=== PATIENT | female | born 1935 | race Hispanic/Latino ===

== ENCOUNTER 2021-08-02 13:10 | Inpatient (IN) | payer MEDICARE, OTHER ==
[~2021-08-02] VITALS: Ht 157.5 cm; Wt 62.1 kg
[2021-08-02 14:09] LABS: APPEARANCE,URINE CLEAR (CLEAR); BILIRUBIN,URINE NEGATIVE (NEGATIVE); COLOR,URINE YELLOW (YELLOW); GLUCOSE, URINE (UA) NEGATIVE (NEGATIVE); KETONES,URINE NEGATIVE (NEGATIVE); LEUKOCYTE ESTERASE ,URINE SMALL (NEGATIVE); NITRATE,URINE NEGATIVE (NEGATIVE); OCCULT BLOOD,URINE NEGATIVE (NEGATIVE); PROTEIN,URINE NEGATIVE (NEGATIVE); UROBILINOGEN,URINE 0.2 mg/dL (0.2-1.0)
[2021-08-02 14:21] LABS: BASOPHILS % (AUTO) 0.7 % (0.0-5.0); EOSINOPHILS % (AUTO) 0.4 % (0.0-8.0); HEMATOCRIT 37.4 % (36-48); LYMPHOCYTES % (AUTO) 20.8 % (21.0-51.0); MEAN CORPUSCULAR HEMOGLOBIN 27.9 pg (27.0-33.0); MEAN CORPUSCULAR HGB CONC 32.4 g/dL (32.0-36.0); MEAN CORPUSCULAR VOLUME 86.2 fL (79-99); MONOCYTES % (AUTO) 8.6 % (3.0-13.0); NEUTROPHILS % (AUTO) 69.3 % (40.0-77.0); PLATELET COUNT (AUTO) 80 K/uL (130-400); RED BLOOD CELL COUNT(AUTO) 4.34 MIL/uL (4.00-5.50); RED CELL DISTRIBUTION WIDTH 15.9 % (11.0-15.5); WHITE BLOOD COUNT (AUTO) 5.7 K/uL (4.8-10.8)
[2021-08-02 14:26] LABS: BACTERIA,URINE Few /HPF (None Seen); RBC,URINE 0-1 /HPF (0-1); SQUAMOUS EPITHELIAL CELL,UR Few /HPF (0-2)
[2021-08-02 14:27] LABS: HYALINE CASTS, URINE 0-1 /LPF (0-1 /LPF)
[2021-08-02 14:41] LABS: ALBUMIN 3.7 g/dL (3.5-5.0); BILIRUBIN,TOTAL 0.9 mg/dL (0.2-1.0); CREATININE 1.4 mg/dL (0.5-1.5); MAGNESIUM 1.5 mg/dL (1.80-2.40); PHOSPHORUS 2.8 mg/dL (2.5-4.9); TOTAL PROTEIN, SERUM 7.2 g/dL (6.0-8.3)
[2021-08-02 14:45] LABS: POTASSIUM 2.8 mmol/L (3.5-5.1)
[2021-08-02] MEDS ORDERED: 0.9%NACL 1000ML 1,000 ML IV ONE (15:00)
[2021-08-02] MEDS ORDERED: POTASSIUM CHLORIDE 10% ELIXIR 20 MEQ/15 ML UDCUP PO ONE (15:00)
[2021-08-02] MEDS ORDERED: POTASSIUM CHLORIDE 10MEQ/100ML 10 MEQ/100 ML ML IV SCH (15:30)
[2021-08-02] MEDS: MAGNESIUM 2GM PREMIX 50ML 50 ML IV SCH (15:48)
[2021-08-02] MEDS ORDERED: ACETAMINOPHEN 325 MG TAB PO PRN (16:00)
[2021-08-02] MEDS ORDERED: DOCUSATE SODIUM 100 MG CAP PO PRN (16:00)
[2021-08-02] MEDS ORDERED: ACETAMINOPHEN 650 MG SUPPOSITORY RC PRN (16:00)
[2021-08-02] MEDS ORDERED: LISI5TAB21 PO (18:47)
[2021-08-02] MEDS ORDERED: CICL34.62 TP (18:47)
[2021-08-02] MEDS ORDERED: DICL100G31 TP (18:47)
[2021-08-02] MEDS ORDERED: FAMO10TA39 PO (18:47)
[2021-08-02] MEDS ORDERED: LORA10TA7 PO (18:47)
[2021-08-02] MEDS ORDERED: LEVO100C4 PO (18:47)
[2021-08-02 19:17] VITALS: BP 136/70
[2021-08-02 20:00] VITALS: BP 153/61
[2021-08-02] MEDS ORDERED: PAMIDRONATE DISODIUM 90MG VIAL 90 MG in 0.9%NACL 1000ML 1,000 ML IV SCH (22:30)
[2021-08-03] VITALS (14 sets, daily range): BP systolic 109–169; BP diastolic 40–80
[2021-08-03] MEDS ORDERED: GUAIFENESIN-DM 200/20 MG 10 ML PO PRN (02:00)
[2021-08-03] MEDS ORDERED: NON-FORMULARY MEDICATION 1 EACH (Diclofenac Sodium 100 GM) TP PRN (02:00)
[2021-08-03] MEDS ORDERED: ZOLPIDEM TARTRATE 5 MG TAB PO PRN (02:00)
[2021-08-03] MEDS ORDERED: LACTULOSE 20 GM/30 ML UDCUP PO PRN (02:00)
[2021-08-03] MEDS ORDERED: NITROGLYCERIN 0.4 MG SL TAB SL PRN (02:00)
[2021-08-03] MEDS ORDERED: MAG/ALUM/SIMETH 30 ML UDCUP PO PRN (02:00)
[2021-08-03] MEDS ORDERED: ONDANSETRON 4MG INJ IV PRN (02:00)
[2021-08-03] MEDS ORDERED: LABETALOL 20MG VIAL IV PRN (02:30)
[2021-08-03] MEDS: 0.9%NACL 1000ML 1,000 ML IV SCH ×3 (03:07→06:28)
[2021-08-03 04:50] LABS: BASOPHILS % (AUTO) 0.5 % (0.0-5.0); EOSINOPHILS % (AUTO) 1.7 % (0.0-8.0); LYMPHOCYTES % (AUTO) 31.1 % (21.0-51.0); MEAN CORPUSCULAR HEMOGLOBIN 27.8 pg (27.0-33.0); MEAN CORPUSCULAR HGB CONC 32.9 g/dL (32.0-36.0); MEAN CORPUSCULAR VOLUME 84.4 fL (79-99); MONOCYTES % (AUTO) 11.9 % (3.0-13.0); NEUTROPHILS % (AUTO) 54.6 % (40.0-77.0); PLATELET COUNT (AUTO) 69 K/uL (130-400); RED BLOOD CELL COUNT(AUTO) 4.03 MIL/uL (4.00-5.50); WHITE BLOOD COUNT (AUTO) 4.1 K/uL (4.8-10.8)
[2021-08-03 05:05] LABS: ALBUMIN 3.3 g/dL (3.5-5.0); BILIRUBIN,TOTAL 0.9 mg/dL (0.2-1.0); CREATININE 1.2 mg/dL (0.5-1.5); MAGNESIUM 1.8 mg/dL (1.80-2.40); TOTAL PROTEIN, SERUM 6.5 g/dL (6.0-8.3)
[2021-08-03] MEDS ORDERED: LEVOTHYROXINE 100 MCG TABLET PO SCH (07:30)
[2021-08-03] MEDS: LORATADINE 10 MG TABLET PO SCH (08:48)
[2021-08-03] MEDS: PANTOPRAZOLE 40 MG TAB DR PO SCH (08:48)
[2021-08-03] MEDS: LISINOPRIL 5 MG TABLET PO SCH (08:49)
[2021-08-03] MEDS ORDERED: ENOXAPARIN SODIUM 30 MG/0.3 ML SQ SCH (09:00)
[2021-08-03] MEDS ORDERED: METOPROLOL TARTRATE 1 MG/ML 5ML VIAL IV PRN (10:00)
[2021-08-03] MEDS ORDERED: METOPROLOL TARTRATE 25 MG TAB PO SCH (10:30)
[2021-08-03] MEDS ORDERED: DILTIAZEM 25MG INJ IVP SCH (10:30)
[2021-08-03] MEDS ORDERED: DILTIAZEM 125 MG/25 ML INJ 125 MG in 0.9%NACL 100ML 100 ML IV PRN (11:00)
[2021-08-03] MEDS: METOPROLOL TARTRATE 25 MG TAB PO SCH ×2 (17:51→23:33)
[2021-08-03] MEDS: ENOXAPARIN SODIUM 30 MG/0.3 ML SQ SCH (20:27)
[2021-08-03] MEDS ORDERED: ENOXAPARIN SODIUM 0.5 MG/KG EACH SQ SCH (21:00)
[2021-08-04 03:53] VITALS: BP 138/60
[2021-08-04 04:07] LABS: HEMATOCRIT 34.6 % (36-48); MEAN CORPUSCULAR HEMOGLOBIN 27.4 pg (27.0-33.0); MEAN CORPUSCULAR HGB CONC 31.5 g/dL (32.0-36.0); MEAN CORPUSCULAR VOLUME 86.9 fL (79-99); RED BLOOD CELL COUNT(AUTO) 3.98 MIL/uL (4.00-5.50); RED CELL DISTRIBUTION WIDTH 16.4 % (11.0-15.5); WHITE BLOOD COUNT (AUTO) 4.4 K/uL (4.8-10.8)
[2021-08-04 04:32] LABS: BILIRUBIN,TOTAL 0.7 mg/dL (0.2-1.0); CREATININE 1.2 mg/dL (0.5-1.5); MAGNESIUM 1.8 mg/dL (1.80-2.40); POTASSIUM 3.3 mmol/L (3.5-5.1); TOTAL PROTEIN, SERUM 6.2 g/dL (6.0-8.3)
[2021-08-04] MEDS: METOPROLOL TARTRATE 25 MG TAB PO SCH (05:34)
[2021-08-04] MEDS: LEVOTHYROXINE 100 MCG TABLET PO SCH (05:35)
[2021-08-04] MEDS: MAGNESIUM 2GM PREMIX 50ML 50 ML IV SCH (05:36)
[2021-08-04 08:00] VITALS: BP 134/67
[2021-08-04] MEDS: LISINOPRIL 5 MG TABLET PO SCH (09:28)
[2021-08-04] MEDS: PANTOPRAZOLE 40 MG TAB DR PO SCH (09:28)
[2021-08-04] MEDS: LORATADINE 10 MG TABLET PO SCH (09:28)
[2021-08-04] MEDS: ENOXAPARIN SODIUM 30 MG/0.3 ML SQ SCH ×2 (09:29→20:30)
[2021-08-04] MEDS ORDERED: POTASSIUM CHLORIDE 20MEQ/100ML 100 ML IV PRN (09:30)
[2021-08-04] MEDS ORDERED: LIDOCAINE HCL-MPF 1% 2ML VIAL IV PRN (09:30)
[2021-08-04] MEDS ORDERED: KCL 20 MEQ ERTAB PO PRN (09:30)
[2021-08-04] MEDS ORDERED: POTASSIUM CHLORIDE 10% ELIXIR 20 MEQ/15 ML UDCUP PO PRN (09:30)
[2021-08-04 11:00] VITALS: BP 148/73
[2021-08-04 16:00] VITALS: BP 153/75
[2021-08-04 16:38] LABS: POTASSIUM 3.8 mmol/L (3.5-5.1)
[2021-08-04] MEDS: METOPROLOL TARTRATE 50 MG TAB PO SCH ×2 (17:00→20:30)
[2021-08-04 19:15] VITALS: BP 166/72
[2021-08-04 23:48] VITALS: BP 154/83
[2021-08-05 03:53] VITALS: BP 142/68
[2021-08-05 03:58] LABS: HEMATOCRIT 33.9 % (36-48); MEAN CORPUSCULAR HEMOGLOBIN 27.8 pg (27.0-33.0); MEAN CORPUSCULAR HGB CONC 32.4 g/dL (32.0-36.0); MEAN CORPUSCULAR VOLUME 85.6 fL (79-99); RED BLOOD CELL COUNT(AUTO) 3.96 MIL/uL (4.00-5.50); RED CELL DISTRIBUTION WIDTH 16.6 % (11.0-15.5); WHITE BLOOD COUNT (AUTO) 4.5 K/uL (4.8-10.8)
[2021-08-05 04:15] LABS: ALBUMIN 2.9 g/dL (3.5-5.0); BILIRUBIN,TOTAL 0.7 mg/dL (0.2-1.0); CREATININE 1.3 mg/dL (0.5-1.5); MAGNESIUM 1.7 mg/dL (1.80-2.40); POTASSIUM 3.4 mmol/L (3.5-5.1); TOTAL PROTEIN, SERUM 6.1 g/dL (6.0-8.3)
[2021-08-05] MEDS: MAGNESIUM 2GM PREMIX 50ML 50 ML IV SCH (05:30)
[2021-08-05] MEDS: LEVOTHYROXINE 100 MCG TABLET PO SCH (05:30)
[2021-08-05] MEDS: LISINOPRIL 5 MG TABLET PO SCH (09:52)
[2021-08-05] MEDS: LORATADINE 10 MG TABLET PO SCH (09:52)
[2021-08-05] MEDS: METOPROLOL TARTRATE 50 MG TAB PO SCH ×2 (09:52→21:21)
[2021-08-05] MEDS: PANTOPRAZOLE 40 MG TAB DR PO SCH (09:53)
[2021-08-05] MEDS: ENOXAPARIN SODIUM 30 MG/0.3 ML SQ SCH ×2 (09:54→21:23)
[2021-08-05 12:00] VITALS: BP 146/67
[2021-08-05 16:00] VITALS: BP 156/82
[2021-08-05 20:49] VITALS: BP 158/75
[2021-08-05 23:41] VITALS: BP 156/79
[2021-08-06 03:10] VITALS: BP 149/74
[2021-08-06 05:25] LABS: ALBUMIN 3.2 g/dL (3.5-5.0); BILIRUBIN,TOTAL 0.7 mg/dL (0.2-1.0); CREATININE 1.4 mg/dL (0.5-1.5); POTASSIUM 4.5 mmol/L (3.5-5.1); TOTAL PROTEIN, SERUM 6.6 g/dL (6.0-8.3)
[2021-08-06 05:29] LABS: INR 1.19 (0.85-1.15); PROTHROMBIN TIME 12.8 SEC (9.6-11.6)
[2021-08-06] MEDS: LEVOTHYROXINE 100 MCG TABLET PO SCH (06:29)
[2021-08-06 08:06] VITALS: BP 161/86
[2021-08-06] MEDS: ENOXAPARIN SODIUM 30 MG/0.3 ML SQ SCH (09:00)
[2021-08-06] MEDS: METOPROLOL TARTRATE 50 MG TAB PO SCH (09:33)
[2021-08-06] MEDS: LORATADINE 10 MG TABLET PO SCH (09:33)
[2021-08-06] MEDS: PANTOPRAZOLE 40 MG TAB DR PO SCH (09:34)
[2021-08-06] MEDS: LISINOPRIL 5 MG TABLET PO SCH (09:34)
[2021-08-06] MEDS ORDERED: AMLODIPINE 5 MG TAB PO SCH (09:45)
[2021-08-06] MEDS ORDERED: VITAD50000 PO (10:02)
[2021-08-06] MEDS ORDERED: AMLO5TAB4 PO (10:02)
[2021-08-06 11:57] VITALS: BP 147/77
[2021-08-07] MEDS ORDERED: CINACALCET 30 MG TAB PO SCH (09:00)
[2021-08-12] MEDS ORDERED: ERGOCALCIFEROL (VITAMIN D2) 50,000 UNIT CAPSULE PO SCH (09:00)
== END 2021-08-06 14:45 | disposition home or self-care (01) | DRG 641 ==
LOC: EDH 13:10 → EDHIP 15:34 → OBSVTOIN 15:34 → 3DH 18:34 → 2DH 08-03 11:26 → 3DH 08-06 04:39 → 2DH 08-06 05:30
PROVIDERS: ADMIT Internal Medicine Critical Care Medicine; ATTEND Internal Medicine Critical Care Medicine
DX: E83.52 Hypercalcemia (principal); N17.9 Acute kidney failure, unspecified; I45.2 Bifascicular block; I47.1 Supraventricular tachycardia; N25.81 Secondary hyperparathyroidism of renal origin; E87.6 Hypokalemia; E83.42 Hypomagnesemia; E86.0 Dehydration; I12.9 Hypertensive chronic kidney disease with stage 1 through stage 4 chronic kidney disease, or unspecified chronic kidney disease; N18.9 Chronic kidney disease, unspecified; K74.60 Unspecified cirrhosis of liver; M19.90 Unspecified osteoarthritis, unspecified site; G89.29 Other chronic pain; M25.561 Pain in right knee; E03.9 Hypothyroidism, unspecified; J30.2 Other seasonal allergic rhinitis; K29.70 Gastritis, unspecified, without bleeding; I45.10 Unspecified right bundle-branch block; I48.0 Paroxysmal atrial fibrillation; D64.9 Anemia, unspecified; D72.819 Decreased white blood cell count, unspecified; D69.6 Thrombocytopenia, unspecified; Z87.891 Personal history of nicotine dependence; Z79.899 Other long term (current) drug therapy
CPT/HCPCS: 36415; 71045; 73562; 76536; 80053; 81001; 82306; 82550; 82607; 83735; 83874; 83880; 83970; 84100; 84132; 84443; 84480; 84484; 85025; 85027; 85610; 87088; 93005; 93306; 93356; 93970; G0378; J1650; J2430; J3475; J3490; J7030